=== PATIENT | female | born 1970 | race African-American/Black ===

== ENCOUNTER 2017-12-29 19:30 | Emergency (ER) | payer OTHER ==
--- NOTE | 2017-12-29 21:41 | ED PSYCHIATRIC COMPLAINT ---
See Addendum History of Present Illness General Chief Complaint: Psychiatric Related Complaint Stated Complaint: BIBA +SI COMMENTS Source: patient, old records Exam Limitations: no limitations Vital Signs & Intake/Output Vital Signs & Intake/Output Vital Signs Date Time Temp Pulse Resp B/P B/P Pulse O2 O2 Flow FiO2 Mean Ox Delivery Rate 12/30 0637 97.9 85 18 107/65 98 Room Air 12/30 0315 98.0 78 16 142/70 98 Room Air 12/29 2255 97.9 76 20 133/73 99 Room Air 12/29 2017 98.2 92 20 163/97 99 Room Air Allergies Coded Allergies: No Known Allergies (12/29/17) Triage Note: 47 Y/O FEMALE BIBA FROM LOCAL TOWN FOR EVAL OF SI STATEMENTS. PER EMS AND PD OFFICER BELINDA PT "SIGNED HERSELF OUT OF A DRUG REHAB PROGRAM AND THEN WENT TO GET INTO CAB AND LAUNDRY AGENT WERE THERE. SOMEONE IN THE PROGRAM CALLED SAYING SHES SI". PER EMS, PT ADMITTED SI EN ROUTE. IS VOLUNTARYILY SEEKING HELP. DENIES HI. NOT ON PEER. BEING WANDED BY SECURITY AT THIS TIME AWAITING EVAL Triage Nurses Notes Reviewed? yes Onset: Last week Duration: gone now Timing: recent history Severity: mild Associated Symptoms: anxiety, impaired concentration LMP (ages 10-50): unknown : No Patient currently breastfeeds: No HPI: 9 days prior to admission the patient was sent from [place] to [facility] for suicidal statements. She then eloped. Prior to admission the patient went to her mother's house to stay that she is homeless and was denied. She felt depressed and went to the police station. She denies fever chills nausea vomiting diarrhea abdominal pain chest pain shortness of breath headache dysuria rash bleeding suicidal ideation homicidal ideation hallucination. She is homeless awaiting placement into a senior care requests transfer to [place] where she can obtain assistance. (Fabián NOLAN,Jame) Past History Travel History Traveled to [place] past 21 day No Medical History Any Pertinent Medical History? 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 No (Jame Lockwood MD) Review of Systems Review of Systems Constitutional: Reports: no symptoms. EENTM: Reports: no symptoms. Respiratory: Reports: no symptoms. Cardiovascular: Reports: no symptoms. GI: Reports: no symptoms. Genitourinary: Reports: no symptoms. Musculoskeletal: Reports: no symptoms. Skin: Reports: no symptoms. Neurological/Psychological: Reports: see HPI, anxiety, emotional problems. Hematologic/Endocrine: Reports: no symptoms. Immunologic/Allergic: Reports: no symptoms. All Other Systems: Reviewed and Negative (Jame Lockwood MD) Physical Exam Physical Exam General Appearance: well developed/nourished, alert, awake, anxious, mild distress, obese Head: atraumatic, normal appearance Eyes: Bilateral: normal appearance, PERRL, EOMI. Ears, Nose, Throat: normal pharynx, normal ENT inspection, hearing grossly normal Neck: normal inspection, supple, full range of motion, no midline tenderness Respiratory: normal breath sounds, chest non-tender, no respiratory distress, quiet respiration, lungs clear Cardiovascular: regular rate/rhythm, normal peripheral pulses, norml femoral pulses equa Gastrointestinal: normal bowel sounds, soft, non-tender, no organomegaly Extremities: normal range of motion, no ligament instability Neurological/Psychiatric: no motor/sensory deficits, awake, agitated, alert, anxious, voice and data technician II-XII nml as tested, oriented x 3 Appearance/Memory/Insight: disheveled, impaired insight Behavoir/Eye Contact/Speech: cooperative, normal speech Thoughts/Hallucinations: no apparent hallucination Skin: intact, normal color, warm/dry SAD PERSONS Done? patient not suicidal (Jame Lockwood MD) Progress Differential Diagnosis: drug intoxication, drug overdose, drug withdrawal, hypoglycemia Plan of Care: Orders Procedure Date/time Status Regular Diet 12/30 B Active URINE 12/31 855 Active URINE DRUG SCREEN FOR ER ONLY 12/31 855 Active ETHANOL 12/31 855 Active ED CRISIS PSYCH CONSULT 12/31 855 Active Current Medications Sig/Bipin Start time Last Medication Dose Stop Time Status Admin Risperidone 1 MG BID 12/29 2214 UNVr 12/30 (Risperidone) 855 Sertraline HCl 100 MG DAILY 12/29 2214 UNVr 12/30 (Zoloft) 0123 Zolpidem Tartrate 10 MG AT BEDTIME 12/29 2144 AC 12/29 (Ambien) 2201 Hand-Off Endorsed To: George Will DO Endorsed Time: 0700 Pending: other (dispo / homeless) (Fabián NOLAN,Jame) Departure Departure Disposition: HOME OR SELF CARE Condition: Stable Clinical Impression Primary Impression: Bipolar disorder Secondary Impressions: Homelessness Referrals: Unknown (PCP/Family) Departure Forms: [facility] General Discharge Information (Jame Lockwood MD) Departure Comments 12/30/17 9 AM She was signed out to me by Dr. Lockwood. She is pending evaluation by crisis. She denies suicidal ideation to me. She is homeless. Past medical history of bipolar disorder. (George Will DO)
--- NOTE | 2017-12-30 12:32 | ED PSYCH CRISIS CONSULTATION ---
Crisis Consult Basic Assessment Date of Consult: 12/30/17 Responsible Person/Accompanied By: self Insurance Authorization: Insurance #1: Insurance name: [employer] C&A Phone number: Policy number: [id number] Group number: Authorization number: ED Provider: Patient's ED Provider: George Will DO Primary Care Physician: Patient's PCP: Unknown PCP's Phone Number: [facility] [place] "Lul" Chief Complaint: Psychiatric Related Complaint Patient's Quote: "Last night I had suicidal thoughts" Present Illness: Pt is a 47 year old single female BIBA with suicidal thoughts last night. The events that led to the patient being brought to the ED are unclear. Triage notes indicate that per EMS and [place] [employer] that pt signed herself out of a drug rehab program and when she got out and was going into a cab the clinical services specialist where there. There are notes indicating the patient was suicidal upon leaving the rehab program and that may be why the police were called. Nursing notes state that the patient is listed as a missing person out of [place] and it's unclear if [facility] was coming to get the patient. Crisis called [place] [employer] ([phone]) . Dispatch was unable to provide any information about the patient being listed as Missing Person in [place]. He provided the following number to [place] [employer] ([phone])- which rang and there was no answer except for static. Crisis evaluated patient this morning. Pt presented disorganized in her thoughts and the timeline of events that have happened recently. Pt's utox was positive for PCP. Pt was breathaylzed at zero this am. Pt states she is here in the ED voluntarily as she was feeling suicidal last night when she went to her mom's house for help. Pt states she was angry that her mom would not let her stay with her yesterday. Pt states she is homeless. Pt reports she was evicted from her apartment in [place] and is unable to identify when this occurred. It is unclear if the eviction was related to a fight she had with her daugher or if the fight happened with her daughter around the same time as the eviction. Pt's daughter (15) is currently residing with pt's mother in [place]. DCF is involveld. Pt states DCF became involved when she was evicted. Mom states she is still daughter's legal guardian but that daughter is living with pt mother until housing is secured. Pt again brought up how angry she is that her mother would not let her stay with her. Pt went into a short discussion about how her mother was a heroin addict when she was a child and how her mother never took care of her. Pt states that she was given candy as a child and told to go play in a room while her mom did drugs. Pt states her partially paralyzed grandmother and aunt raised her while her other two sister were raised seperately by seperate family members. Pt states she thought "you can always go home to your mother and she'll take care of you" which is why she states she felt suicidal yesterday because her mom let her down again. Pt denies feeling suicidal today. Pt denies any past suicide attempts. Pt was hospitalized 1x at [facility] for SI. Pt states she was at [facility] in [place] which she liked. Pt would go back if a bed was available. Pt states she does not need rehab and states she can stop using on her own, despite stating her last PCP use was the day before yesterday when she used 2 bags. Prior to coming to the ED and trying to stay at her mom's pt states she was staying at a girlfriends house. Pt also notes that she completed an intake at [facility] in [place] yesterday. Crisis called [facility] in [place]- patient cannot return there as it has not been 4 weeks since she left. [facility] does not have female beds available. Crisis left message for daughterSteve ([phone]). No return call. Crisis spoke to Lul, clinician at [facility] in [place]. Lul offers that she recently saw pt but that the pt is discharged from [facility]. Lul was able to clarify the details of the last 4-6 weeks. Pt was seen at [facility] on 11/23/17 for SI and was subsequently hospitalized. Pt was discharged to [facility] then went to rehab at [facility]. Pt then left rehab after 5 days. Lul thinks pt needs higher level of care than outpatient but understands pt needs to want to go to Rehab. [facility] does not offer a dual IOP. Patient denies SI/HI/AH/VH. Pt denies any history of suicide attempts or family history of suicide. Pt's biggest concerns at this time is where she is going to live. We discussed that she can't go back to [facility] in [place] and that [facility] does not have beds. We discussed that she can't go to her mother 's house. She states she can't go to her older daughter's house as its too crowded. Pt identified 1 friend that she has in [place] that she has stayed with on occassion. Pt will go to her friends house as she does not have her phone number. Pt will follow up with [facility] for services. Pt was informed of her court date (pt requested information). Pt will be set up with a [employer] ride as pt has no means of transportation (Anya will not take her to her friends house as it's not listed as her address) and no money. Crisis discussed case w/ Dr. Pelayo. Pt has been psychiatrically cleared for discharge. C-SSRS completed- filed in chart. Patient's Address: [address] [place] [id number] Other Phone Number: Who Do You Live With? Other (see notes) (homeless ) Family/Informants Interviewed: left message for daughterErnesto [phone], spoke w/ former therapist, Lul @ [facility]. See present illness section Allergies - Coded Allergies: No Known Allergies (12/29/17) Current Medications - Unable to Obtain Home Medication History Laboratory Results: Laboratory Tests 12/30/17 1013: Urine Opiates Screen < 100, Methadone Screen < 40, Barbiturate Screen < 60, Ur Phencyclidine Scrn > 72.00 H, Amphetamines Screen < 100, U Benzodiazepines Scrn < 85, Urine Cocaine Screen < 50, Urine Cannabis Screen < 5.00, Urine Test NEGATIVE 12/30/17 0856: Serum Alcohol Cancelled Past History Past Medical History Neurological: NONE EENT: NONE Cardiovascular: NONE Respiratory: NONE Gastrointestinal: NONE Hepatic: NONE Renal: NONE Musculoskeletal: NONE Psychiatric: bipolar disease, substance abuse (PCP) Endocrine: NONE Blood Disorders: NONE Cancer(s): NONE 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 Past Surgical History Surgical History: non-contributory Psychosocial History Strengths/Capabilities: pt is seeking help Physical Limitations (Interventions): pt is homeless Psychiatric Treatment History Psych Treatment Psychiatric Treatment Yes Inpatient Treatment Yes Outpatient Treatment Yes Location of Treatment [facility] Reason for Treatment SI, bipolar d/o and PCP abuse Dates of Treatment pt was in [place] ED 11/23 and subsequently hospitalized Response to Treatment poor- pt was hospitalized @ [facility], went to [facility], then rehab, left rehab after 5 days and has since relapsed on PCP Diagnosis by History: bipolar disorder PCP Abuse Substance Use/Abuse History Drug Use/Abuse Substances Used/Abused Yes Substance Used/Abused Other (list in comments) (PCP/ "wet") First Use 23 Last Used 12/28/17 How much used/taken 2 bags How often unclear For how long on and off Route of use smoke Substance Abuse Treatment Substance Abuse Treatment Past Substance Abuse [place] Yes Inpatient Treatment Yes Outpatient Treatment Yes Location of Treatment [facility], [facility] Reason for Treatment PCP use Dates of Treatment [place]- recently w/n last week, [facility]- recently but closed, [facility] now Response to Treatment poor, pt relapses Current Mental Status Mental Status Orientation: Person, Place, Situation Affect: Variable Speech: Hyper-verbal, Loud Neuro-vegetative: Concentration Poor Appearance Appearance- Dress/Hygiene: Pt presents in hospital scrubs Her hair is braided and well kept Hygiene appears fair Behaviors Thought Process: Disorganized Thought Content: WNL Memory: Impaired Insight: Fair SI/HI Risk Assessment Past Suicidal Ideation/Attempts Yes Current Suicidal Ideation/Att No Past Homicidal Ideation/Att: No Current Homicidal Ideation/Attempts No Degree of Intent: None Gravely Disabled: Poor Impulse Control, Poor Judgment Risk Factors: history of Violence, SA/MH hospitalized, substance abuse, poor impulse control, limited support Lethality Ratin PTSD Checklist PTSD Done? 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 Mei Pelayo Date Disposition Established: 12/30/17 Time Disposition Established: 1330 Plan for Disposition - Modality: IOP Facility: [facility], pt already did intake yesterday Rationale for Disposition: Pt presents to the ED on [facility] for SI. Pt's UDS is positive for PCP. Pt's SI was in context of her mother "letting her down" again when she said she couldn't live with her yesterday as pt is homeless. Pt denies SI today. Pt completed intake at [facility] yesterday. She has the paperwork to start services. Pt states there is a friend in [place] that she can stay with who will not put her on the street. Pt doesn't know this person's phone number or address but knows the location. Referrals Unknown (PCP/Family)
[2017-12-30 14:06] VITALS: BP 145/97
== END 2017-12-30 14:07 ==
LOC: ERH 19:30
DX: F31.9 Bipolar disorder, unspecified (principal); Z59.0 Homelessness; F17.210 Nicotine dependence, cigarettes, uncomplicated; F16.10 Hallucinogen abuse, uncomplicated
CPT/HCPCS: 80307; 81025; G0463; G0480